=== PATIENT | female | born 1990 | race Two or more races ===

== ENCOUNTER → 2024-02-04 | Outpatient (CLI) | payer OTHER | LOC: M SLEEP 20:00 | PROVIDERS: ATTEND Physician Assistant Medical | DX: G47.30 Sleep apnea, unspecified (principal); R06.83 Snoring ==

== ENCOUNTER → 2024-03-07 | Outpatient (CLI) | payer OTHER | LOC: M RAD 13:35 | PROVIDERS: ATTEND Physician Assistant | DX: J32.4 Chronic pansinusitis (principal); J32.8 Other chronic sinusitis ==